=== PATIENT | female | born 1950 | race Caucasian/White ===

== ENCOUNTER 2017-01-07 23:55 | Emergency (ER) | payer MEDICARE, OTHER | END 2017-01-08 03:28 | disposition other institution (70) | LOC: ER 23:55 | DX: J90 Pleural effusion, not elsewhere classified (principal); I50.9 Heart failure, unspecified; R60.0 Localized edema; J44.9 Chronic obstructive pulmonary disease, unspecified; F17.210 Nicotine dependence, cigarettes, uncomplicated; L03.116 Cellulitis of left lower limb; L03.115 Cellulitis of right lower limb; I87.2 Venous insufficiency (chronic) (peripheral) | CPT/HCPCS: 71010; 83880; 93005; 96374; 99070; 99284; 99285-25 ==

== ENCOUNTER 2017-01-07 23:55 | Inpatient (IN) | payer MEDICARE, OTHER ==
[~2017-01-07] VITALS: Ht 167.6 cm; Wt 71.0 kg
[2017-01-08 00:12] LABS: BASO % 0.5 % (0.1-1.2); EOS # 0.4 10_X3_uL (0.0-0.4); EOS % 6.7 % (0.7-5.8); GRAN # 3.3 10_X3_uL (1.6-6.1); GRAN % 60.6 % (34.0-71.1); HEMOGLOBIN 11.9 g/dL (11.2-15.7); LYMPH # 1.2 10_X3_uL (1.2-3.7); LYMPH % 20.8 % (19.3-51.7); MEAN CORPUSCULAR HEMOGLOBIN 26.4 pg (27.0-33.0); MEAN CORPUSCULAR VOLUME 90.9 fL (79-95); MEAN PLATELET VOLUME 10.4 fl (7.5-11.5); MONO # 0.6 10_X3_uL (0.2-0.9); MONO % 11.4 % (4.7-12.5); PLATELET COUNT 207 x10_3/uL (182-369); RED BLOOD COUNT 4.51 x10_6/uL (3.9-5.2); RED CELL DISTRIBUTION WIDTH 16.5 % (11.7-14.4); WHITE BLOOD COUNT 5.5 x10_3/uL (4.0-10.0)
[2017-01-08 00:34] LABS: ALBUMIN 2.7 gm/dL (3.4-5.0); BILIRUBIN,TOTAL 0.17 mg/dL (0.0-1.0); CALCIUM 8.1 mg/dL (8.7-10.7); CREATININE 1.2 mg/dL (0.6-1.3); TOTAL PROTEIN 6.4 gm/dL (6.4-8.2)
[2017-01-08 05:53] LABS: MAGNESIUM 2.3 mg/dL (1.8-2.4)
[2017-01-08 06:24] LABS: BILIRUBIN,DIRECT < 0.20 mg/dL (0.0-0.30); DIGOXIN < 0.3 ng/ml (0.90-2.00)
[2017-01-08 08:29] LABS: INR 1.1 (0.9-1.1); PARTIAL THROMBOPLASTIN TIME 24.2 SECONDS (21.3-29.3)
[2017-01-08 08:36] LABS: CKMB 6.5 ng/ml (0.0-5.0); TROP-I < 0.30 NG/ML (0.00-0.30)
[2017-01-08 15:09] LABS: HEMATOCRIT 43.4 % (34-45); HEMOGLOBIN 12.4 g/dL (11.2-15.7); MEAN CORPUSCULAR HEMOGLOBIN 26.4 pg (27.0-33.0); MEAN CORPUSCULAR HGB CONC 28.6 g/dL (32.0-36.0); MEAN CORPUSCULAR VOLUME 92.5 fL (79-95); MEAN PLATELET VOLUME 10.6 fl (7.5-11.5); RED BLOOD COUNT 4.69 x10_6/uL (3.9-5.2); RED CELL DISTRIBUTION WIDTH 16.7 % (11.7-14.4); WHITE BLOOD COUNT 5.1 x10_3/uL (4.0-10.0)
[2017-01-08 15:22] LABS: ARTERIAL BLD GAS O2 SATURATION 98.9 % (94-98); ARTERIAL BLOOD GAS BASE EXCESS 11.4 mmol/L (-2.0-3.0); ARTERIAL BLOOD GAS pH 7.32 (7.35-7.45)
[2017-01-08 15:25] LABS: CALCIUM 8.1 mg/dL (8.7-10.7); CREATININE 1.2 mg/dL (0.6-1.3); MAGNESIUM 2.2 mg/dL (1.8-2.4); POTASSIUM 4.8 mmol/L (3.5-5.1)
[2017-01-08 15:37] LABS: CKMB 7.2 ng/ml (0.0-5.0); TROP-I < 0.30 NG/ML (0.00-0.30)
[2017-01-08 15:39] LABS: ARTERIAL BLOOD GAS PCO2 80.2 mmHg (32-45)
[2017-01-08 18:07] LABS: ARTERIAL BLD GAS O2 SATURATION 98.1 % (94-98); ARTERIAL BLOOD GAS BASE EXCESS 9.3 mmol/L (-2.0-3.0); ARTERIAL BLOOD GAS HCO3 37.8 mmol/L (22-26)
[2017-01-08 18:13] LABS: ARTERIAL BLOOD GAS PCO2 78.6 mmHg (32-45)
== END 2017-01-08 19:15 | disposition short-term general hospital (02) | DRG 291 ==
LOC: ER 23:55 → MS 01-08 03:28
PROVIDERS: Emergency Medicine; ADMIT Family Medicine
DX: I13.0 Hypertensive heart and chronic kidney disease with heart failure and stage 1 through stage 4 chronic kidney disease, or unspecified chronic kidney disease (principal); I50.43 Acute on chronic combined systolic (congestive) and diastolic (congestive) heart failure; J90 Pleural effusion, not elsewhere classified; J98.11 Atelectasis; I42.9 Cardiomyopathy, unspecified; E03.9 Hypothyroidism, unspecified; E11.22 Type 2 diabetes mellitus with diabetic chronic kidney disease; N18.9 Chronic kidney disease, unspecified; R60.0 Localized edema; J44.9 Chronic obstructive pulmonary disease, unspecified; Z86.73 Personal history of transient ischemic attack (TIA), and cerebral infarction without residual deficits; Z95.810 Presence of automatic (implantable) cardiac defibrillator; R06.02 Shortness of breath; R09.02 Hypoxemia; S81.801A Unspecified open wound, right lower leg, initial encounter; X58.XXXA Exposure to other specified factors, initial encounter; F17.210 Nicotine dependence, cigarettes, uncomplicated; Z98.51 Tubal ligation status; Z95.5 Presence of coronary angioplasty implant and graft; Z91.14 Patient's other noncompliance with medication regimen; Z79.899 Other long term (current) drug therapy
CPT/HCPCS: 36415; 36600; 71010; 80048; 80053; 80061; 80162; 82248; 82550; 82553; 82803; 82962; 83036; 83735; 83880; 84443; 85025; 85610; 85730; 87070; 93005; 96374; 99070; 99284; 99285-25